=== PATIENT | female | born 1955 | race African-American/Black ===

== ENCOUNTER 2017-07-24 11:00 | Outpatient (CLI) | payer MEDICARE, MEDICAID | END 2017-07-24 11:01 | disposition home or self-care (01) | LOC: ULT 11:00 | PROVIDERS: ATTEND Emergency Medicine | DX: R22.42 Localized swelling, mass and lump, left lower limb (principal) ==

== ENCOUNTER 2024-01-06 09:33 | Outpatient (CLI) | payer MEDICARE, MEDICAID | END 2024-01-06 09:34 | disposition home or self-care (01) | LOC: ULT 09:33 | PROVIDERS: ATTEND Emergency Medicine | DX: M79.89 Other specified soft tissue disorders (principal) | CPT/HCPCS: 76999 ==